=== PATIENT | male | born 1945 | race Two or more races ===

== ENCOUNTER 2024-11-14 20:05 | Inpatient (IN) | payer MEDICARE, OTHER ==
[~2024-11-14] VITALS: Ht 167.6 cm; Wt 79.0 kg
[2024-11-14 20:09] VITALS: O2SAT 98
[2024-11-14 21:18] LABS: BASOPHILS % 0.2 % (0.0-2.0); DIFFERENTIAL COMMENT 0; HEMOGLOBIN. 9.2 g/dL (14.0-18.0); LYMPHOCYTES % 8.5 % (20.0-50.0); MEAN CORPUSCULAR HGB CONC 31.7 g/dL (31.0-37.0); MEAN CORPUSCULAR VOLUME 72.4 fL (80.0-94.0); MEAN PLATELET VOLUME 7.4 fl (7.4-10.4); MONOCYTES % 6.4 % (2.0-8.0); NEUTROPHILS % 83.9 % (40.0-76.0); PLATELET 320 x1000/uL (130-400); RED BLOOD CELL COUNT 4.01 mill/uL (4.7-6.1); RED CELL DISTRIBUTION WIDTH 15.1 % (11.6-14.6); WHITE BLOOD COUNT 12.5 x1000/uL (4.5-11.0)
[2024-11-14 21:27] LABS: CHLORIDE 107 mEq/L (98-107); POTASSIUM 3.7 mEq/L (3.5-5.1); SODIUM 142 mEq/L (136-145)
[2024-11-14 21:28] LABS: CALCIUM 9.3 mg/dL (8.7-10.4); CARBON DIOXIDE 27 mEq/L (21-32)
[2024-11-14 21:29] LABS: PARTIAL THROMBOPLASTIN TIME 27.1 sec (23.4-31.0); PROTHROMBIN TIME 10.5 sec (9.6-11.0)
[2024-11-14 21:33] LABS: CREATININE 1.1 mg/dL (0.6-1.3); GLUCOSE 191 mg/dL (70-105); UREA NITROGEN BLOOD 21 mg/dL (9-23)
[2024-11-14 21:34] LABS: ALANINE AMINOTRANSFERASE 17 IU/L (10-49); ALBUMIN 3.9 g/dL (3.2-4.8); ASPARTATE AMINOTRANSFERASE 15 IU/L (<34); TROPONIN I HIGH SENSITIVITY 18 ng/L (3.0-53)
[2024-11-14 21:35] LABS: BILIRUBIN DIRECT < 0.1 mg/dL (<=3.0); BILIRUBIN TOTAL 0.2 mg/dL (0.1-1.0); PROTEIN TOTAL 6.2 g/dL (6.0-8.3)
[2024-11-14] MEDS: SODIUM CHLORIDE 0.9% 1,000 ML IV ONE (21:41)
[2024-11-15] MEDS ORDERED: BENA40TA91 PO (00:45)
[2024-11-15] MEDS ORDERED: HYDR25TA PO (00:50)
[2024-11-15] MEDS ORDERED: HYDR100T11 PO (00:50)
[2024-11-15] MEDS ORDERED: LABE200T9 PO (00:50)
[2024-11-15] MEDS ORDERED: DILT60TA3 PO (00:50)
[2024-11-15 00:57] VITALS: BP 191/74; PULSE 92; RESP 18; TEMP 36.5
[2024-11-15 03:35] VITALS: BP 171/74; PULSE 87; RESP 20; TEMP 36.4; O2SAT 97
[2024-11-15] MEDS ORDERED: ZOLPIDEM TARTRATE 5MG TABLET PO PRN (03:45)
[2024-11-15] MEDS ORDERED: DIPHENHYDRAMINE 50MG/ML VIAL IV PRN (03:45)
[2024-11-15] MEDS ORDERED: HYDRALAZINE 20MG/ML VIAL IV PRN (03:45)
[2024-11-15] MEDS ORDERED: ONDANSETRON HCL 4MG/2ML INJ IV PRN (03:45)
[2024-11-15] MEDS ORDERED: ACETAMINOPHEN 325MG TABLET PO PRN (03:45)
[2024-11-15] MEDS: SODIUM CHLORIDE 0.9% 1,000 ML IV SCH ×2 (04:15→21:27)
[2024-11-15] MEDS: CLONIDINE 0.1MG TABLET PO PRN (04:28)
[2024-11-15 08:00] VITALS: BP 145/58; PULSE 89; RESP 18; TEMP 36.5; O2SAT 99
[2024-11-15] MEDS ORDERED: FOLI-43 PO (08:20)
[2024-11-15] MEDS ORDERED: METF-416 PO (08:20)
[2024-11-15] MEDS ORDERED: GABA-1180 PO (08:20)
[2024-11-15] MEDS ORDERED: BACL-141 PO (08:20)
[2024-11-15] MEDS ORDERED: LIDO35.421 TP (08:20)
[2024-11-15] MEDS: LABETALOL HCL 200MG TABLET PO SCH (08:38)
[2024-11-15] MEDS: LISINOPRIL 10MG TABLET PO SCH (08:38)
[2024-11-15] MEDS ORDERED: LOTEN PO SCH (09:00)
[2024-11-15 10:50] LABS: HEMATOCRIT 24.9 % (42.0-52.0); MEAN CORPUSCULAR HEMOGLOBIN 23.6 pg (28.0-32.0); MEAN CORPUSCULAR HGB CONC 32.1 g/dL (31.0-37.0); MEAN CORPUSCULAR VOLUME 73.5 fL (80.0-94.0); PLATELET 281 x1000/uL (130-400); RED BLOOD CELL COUNT 3.39 mill/uL (4.7-6.1); RED CELL DISTRIBUTION WIDTH 15.1 % (11.6-14.6); WHITE BLOOD COUNT 6.9 x1000/uL (4.5-11.0)
[2024-11-15 12:00] VITALS: BP 139/50; PULSE 71; RESP 20; TEMP 36.5; O2SAT 99
[2024-11-15] MEDS: ACETAMINOPHEN 325MG TABLET PO PRN (14:02)
[2024-11-15 16:00] VITALS: BP 122/40; PULSE 83; RESP 20; TEMP 36.4; O2SAT 98
[2024-11-15 17:26] LABS: HEMATOCRIT 20.5 % (42.0-52.0); HEMOGLOBIN 6.5 g/dL (14.0-18.0)
[2024-11-15 17:32] LABS: FOLIC ACID (FOLATE) SERUM > 20.00 ng/mL (>5.38); VITAMIN B12 SERUM 186 pg/mL (211-911)
[2024-11-15 17:38] LABS: FERRITIN 65 ng/mL (22-322)
[2024-11-15 20:00] VITALS: BP 118/52; PULSE 128; RESP 20; TEMP 36.7; O2SAT 100
[2024-11-15] MEDS: SODIUM CHLORIDE 0.9% 1,000 ML IV ONE (20:09)
[2024-11-15 20:16] LABS: IRON 55 ug/dL (65-175)
[2024-11-15 20:19] LABS: TOTAL IRON BINDING CAPACITY 127 ug/dl (250-425)
[2024-11-16] VITALS: BP 123/49; PULSE 112; RESP 20; O2SAT 100
[2024-11-16] MEDS ORDERED: OCTREOTIDE 1,000 MCG in SODIUM CHLORIDE 0.9% 98 ML IV SCH
[2024-11-16] MEDS: OCTREOTIDE IV SCH (00:50)
[2024-11-16] MEDS: SODIUM CHLORIDE 0.9% IV SCH (00:50)
[2024-11-16] MEDS: OCTREOTIDE ACETATE 50 MCG/ML 1ML SUBCUT NR (00:50)
[2024-11-16 02:00] VITALS: BP 132/53; PULSE 123; RESP 19; O2SAT 98
[2024-11-16] MEDS: PANTOPRAZOLE SODIUM 40 MG/VIAL IV SCH (03:08)
[2024-11-16 04:00] VITALS: BP 119/53; PULSE 151; RESP 22; TEMP 36.7; O2SAT 100
[2024-11-16] MEDS ORDERED: SODIUM CHLORIDE 0.9% 500 ML IV NR (04:00)
[2024-11-16 06:00] VITALS: BP 103/62; PULSE 147; RESP 18; O2SAT 100
[2024-11-16 07:26] LABS: BASOPHILS % 0.1 % (0.0-2.0); DIFFERENTIAL COMMENT 0; EOSINOPHILS % 0.1 % (0.0-5.0); LYMPHOCYTES % 7.9 % (20.0-50.0); MEAN CORPUSCULAR HEMOGLOBIN 23.5 pg (28.0-32.0); MEAN CORPUSCULAR HGB CONC 30.8 g/dL (31.0-37.0); MEAN CORPUSCULAR VOLUME 76.3 fL (80.0-94.0); MEAN PLATELET VOLUME 8.3 fl (7.4-10.4); MONOCYTES % 6.6 % (2.0-8.0); NEUTROPHILS % 85.3 % (40.0-76.0); PLATELET 225 x1000/uL (130-400); RED CELL DISTRIBUTION WIDTH 15.8 % (11.6-14.6); WHITE BLOOD COUNT 17.3 x1000/uL (4.5-11.0)
[2024-11-16 07:28] LABS: POTASSIUM 4.3 mEq/L (3.5-5.1)
[2024-11-16 07:29] LABS: CALCIUM 7.6 mg/dL (8.7-10.4)
[2024-11-16 07:34] LABS: CREATININE 1.3 mg/dL (0.6-1.3)
[2024-11-16 07:57] LABS: HEMATOCRIT. 13.7 % (42.0-52.0); HEMOGLOBIN. 4.2 g/dL (14.0-18.0)
[2024-11-16 09:00] VITALS: PULSE 143
[2024-11-16] MEDS ORDERED: NON FORMULARY MED XX SCH (09:45)
[2024-11-16] MEDS: IRON SUCROSE COMPLEX 100 MG/5 ML ML IV SCH (10:01)
[2024-11-16] MEDS: EPOETIN ALFA-EPBX 10,000 UNIT/ML VIAL SUBCUT SCH (10:55)
[2024-11-17] MEDS ORDERED: EPOETIN ALFA-EPBX 10,000 UNIT/ML VIAL SUBCUT SCH (21:00)
== END 2024-11-16 14:26 | DRG 377 ==
LOC: ER 20:05 → 7WST 22:53 → EDBEDREQ 22:56 → ENRESERV 23:12 → 5EST 11-16 00:31 → 7WST 11-16 00:37 → 5EST 11-16 00:38
PROVIDERS: ADMIT Internal Medicine; ATTEND Internal Medicine
PROC: 0BH17EZ Insertion of Endotracheal Airway into Trachea, Via Natural or Artificial Opening (ICD-10-PCS; principal; 2024-11-16)
PROC: 5A12012 Performance of Cardiac Output, Single, Manual (ICD-10-PCS; 2024-11-16)
DX: K57.31 Diverticulosis of large intestine without perforation or abscess with bleeding (principal); G93.41 Metabolic encephalopathy; I10 Essential (primary) hypertension; D50.9 Iron deficiency anemia, unspecified; Z85.46 Personal history of malignant neoplasm of prostate
CPT/HCPCS: 31500; 36415; 71045; 74176; 80048; 80076; 82607; 82728; 82746; 82962; 83540; 83550; 83880; 84484; 85014; 85018; 85025; 85027; 85044; 92950; 93005; 94070; 99285; J0885; J2354; J2470; J7030; J7050